=== PATIENT | female | born 1935 | race Asian ===

== ENCOUNTER → 2016-07-21 | Outpatient (CLI) | payer OTHER ==
[~2016-07-21] MED LIST: ALEN5TAB5 PO; AMLO5TAB66 PO; ASPI-556 PO; ATOR20TA86 PO; CALC500T62 PO; LORA10TA7 PO; METF500T4 PO; MONT10TA21 PO; OMEP20TA86 PO; TRAM50TA4 PO; VALS160T2 PO
== END | disposition home or self-care (01) ==
LOC: RADPV 08:33
PROVIDERS: ATTEND Internal Medicine
DX: K73.9 Chronic hepatitis, unspecified (principal); K76.0 Fatty (change of) liver, not elsewhere classified; K76.89 Other specified diseases of liver
CPT/HCPCS: 76700

== ENCOUNTER → 2017-03-30 | Outpatient (CLI) | payer OTHER ==
[~2017-03-30] MED LIST changes: +OMEP20TA25 PO; -OMEP20TA86 PO
== END | disposition home or self-care (01) ==
LOC: RADPV 08:59
PROVIDERS: ATTEND Internal Medicine
DX: K76.89 Other specified diseases of liver (principal)
CPT/HCPCS: 76700